=== PATIENT | female | born 1995 | race African-American/Black ===

== ENCOUNTER 2016-10-29 15:12 | Emergency (ER) | payer OTHER ==
[2016-10-29 16:33] VITALS: BP 121/61
--- NOTE | 2016-10-29 16:38 | Diagnostic Imaging Report ---
[facility] [address] [facility].[address] [id number] Report Submission Date: Oct 29, 2016 4:36:53 PM CDT Patient Study Name: AFSANEH LOVE Date: Oct 29, 2016 3:59:38 PM CDT Modality Type: CR Gender: F Description: SPINE : 89 Institution: [facility] Physician: TRISTON CHADWICK 5 views of the cervical spine History: Migraines for 2-3 months. Right-sided neck pain No comparison studies There is straightening of the cervical spine which may be secondary to spasm. No compression deformity. No obvious evidence of acute fracture or dislocation of the cervical spine. Intervertebral disc spaces are preserved. No obvious foraminal narrowing Impression: Straightening of the cervical spine may be secondary to spasm No obvious acute fracture or dislocation of the cervical spine Intervertebral disc spaces are preserved. No obvious foraminal narrowing Electronically signed on Oct 29, 2016 4:36:53 PM CDT by: Lila PINK
--- NOTE | 2016-10-29 16:58 | ED Physician Documentation ---
Neck Injury/Pain - HISTORIAN Historian: patient - HPI Stated Complaint: Neck Pain Chief Complaint: Neck Pain Onset: other (several weeks) Duration: continues in ED Recent Injury: No Severity: mild Quality: burning Associated Symptoms: denies: fever, chills Relieved By: remaining still Further Comments: yes (Patient has a history of migraine headaches. Recently has been having some some pain in her neck with radiation of the pain in to the right posterior shoulder and arm arm area. Describes the pain as burning tingling pain. Worse with turning her head to the right or lifting something.) - ROS NEURO/PSYCH: denies: difficulty with speech, anxiety CONST: denies: no problems GI/: denies: nausea, vomiting - PAST HX Past History: other (migraine headaches). denies: arthritis, intervertebral disc dis. Surgeries/Procedures: other (myringotomy tubes. Arthroscopic surgeries to her knees. ) Allergies/Adverse Reactions: Allergies Allergy/AdvReac Type Severity Reaction Status Date / Time amoxicillin trihydrate Allergy Mild rash Verified 01/09/16 20:47 [From Augmentin] Sulfa (Sulfonamide Allergy Mild Rash Verified 10/29/16 15:27 Antibiotics) potassium clavulanate Allergy Mild rash Uncoded 01/09/16 20:47 [From Augmentin] Home Medications: Ambulatory Orders Medication Instructions Recorded Cetirizine HCl [Zyrtec] 10 mg PO DAILY av 05/26/13 Medroxyprogesterone Acetate 150 mg IM MONTH 10/29/16 [Depo-Provera] - SOCIAL HX Smoking History: non-smoker Alcohol Use: none Drug Use: none - FAMILY HX Family History: other (breast and cervical cancer) - VITAL SIGNS Vital Signs: Vital Signs Temp Pulse Resp BP Pulse Ox 99.0 F 69 16 121/61 100 10/29/16 15:23 10/29/16 15:23 10/29/16 16:30 10/29/16 16:30 10/29/16 16:30 - REVIEWED ASSESSMENT Nursing Assessment Reviewed: Yes Vitals Reviewed: Yes ED Results Lab/Radiology - Orders Orders: ED Orders Category Date Time Status CERVICAL SPINE INCLUDING FLEX/EXT, OBLIQ [C SPINE 4 Exams 10/29/16 Completed VIEWS OR MORE] [RAD] Stat URINE HCG Routine Lab 10/29/16 Ordered Neck Injury/Pain - Physical Exam General Appearance: no acute distress, alert EENT: nml ENT inspection, pharynx nml Neck: thyroid nml, other (mild tenderness to the right paraspinal muscle area into the trigger point area of the R posterior shoulder). No: muscle spasm, lymphadenopathy Back: non-tender, painless ROM Respiratory: chest non-tender, breath sounds nml. No: tenderness, ecchymosis CVS: heart sounds nml, bilateral pulses nml Abdomen: non-tender Skin: warm/dry, normal color Extremities: non-tender Neuro/Psych: oriented x3, CN's nml as tested, sensation nml, motor nml, mood/ affect nml, joint supervisor nml, reflexes nml, joint supervisor symmetrical Discharge Clincal Impression: Neck pain on right side Referrals: Sendy Theodore FNP [Primary Care Provider] - 2 Days Additional Instructions: Try using a warm compress to the neck and posterior shoulder area. Take some Aleve 220mg two tablets twice a day with food. Do neck exercises. If the pain continues follow-up with your primary care provider for further treatment and evaluation. Home Medications: Ambulatory Orders Cetirizine HCl [Zyrtec] 10 mg PO DAILY av 05/26/13 Medroxyprogesterone Acetate [Depo-Provera] 150 mg IM MONTH 10/29/16 Condition: Stable Disposition: 01 HOME, SELF-CARE Decision to Admit: NO Date of Decison to Admit: 10/29/16 Decision Time: 15:59
== END 2016-10-29 17:01 | disposition home or self-care (01) ==
LOC: ED 15:12
DX: M54.2 Cervicalgia (principal)
CPT/HCPCS: 72050; 81025; 99283